=== PATIENT | female | born 1995 | race Caucasian/White ===

== ENCOUNTER → 2018-12-21 | Outpatient (CLI) | payer OTHER ==
--- NOTE | 2018-12-21 15:27 | RADIOLOGY REPORT (SQ) ---
EXAM DESCRIPTION: CT ABD/PELVIS COMBO COMPLETED DATE/TIME: 12/21/2018 1:54 pm REASON FOR STUDY: RENAL MASS COMPARISON: None. TECHNIQUE: CT scan of the abdomen and pelvis performed with and without intravenous contrast, and wi thout oral contrast. Contrasted imaging performed helical scanning technique and dynamic intravenous contrast injection. Images reviewed with lung, soft tissue, and bone windows. Reconstructed coronal a nd sagittal MPR images reviewed. Delayed images for evaluation of the urinary system also acquired. A ll images stored on PACS. All CT scanners at this facility use dose modulation, iterative reconstruction, and/or weight based d osing when appropriate to reduce radiation dose to as low as reasonably achievable (ALARA). [facility]: Dose Right [facility]: CareDose [facility]: Dose Right [facility]: Teradose 4D [facility]: BRAINREPUBLIC CONTRAST TYPE AND DOSE: contrast/concentration: Isovue 350.00 mg/ml; Total Contrast Delivered: 51.0 ml; Total Saline Delivered: 55.0 ml RENAL FUNCTION: None required. The patient is less than 50 years old. RADIATION DOSE: CT Rad equipment meets quality standard of care and radiation dose reduction techniq ues were employed. CTDIvol: 5.0 - 19.7 mGy. DLP: 1236 mGy-cm. . LIMITATIONS: None. FINDINGS: NON-CONTRASTED IMAGING: No significant renal or bladder calcifications. No other significa nt organ calcifications. POST-CONTRASTED IMAGING: LOWER CHEST: No significant findings. No nodules or infiltrates. LIVER: Normal size. No masses. No dilated ducts. SPLEEN: Normal size. No focal lesions. PANCREAS: No masses. No significant calcifications. No adjacent inflammation or peripancreatic fluid collections. Pancreatic duct not dilated. GALLBLADDER: No identified stones by CT criteria. No inflammatory changes to suggest cholecystitis. ADRENAL GLANDS: No significant masses or asymmetry. RIGHT KIDNEY AND URETER: No solid masses. No significant calcifications. No hydronephrosis or hyd roureter. LEFT KIDNEY AND URETER: No solid masses. No significant calcifications. No hydronephrosis or hydr oureter. AORTA AND VESSELS: No aneurysm. No dissection. Renal arteries, SMA, celiac without stenosis. 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 RETROPERITONEUM: No retroperitoneal adenopathy, hemorrhage or masses. BOWEL AND PERITONEAL CAVITY: No masses or inflammatory changes. No free fluid or peritoneal masses. APPENDIX: Normal. PELVIS: No mass. Tampon in the vagina. No free fluid. Normal bladder. ABDOMINAL WALL: No masses. No hernias. BONES: No significant or acute findings. OTHER: No other significant finding. IMPRESSION: No evidence of renal mass. No significant CT abnormality of the abdomen or pelvis. TECHNICAL DOCUMENTATION: JOB ID: [id number] Quality ID # [id number]: Final reports with documentation of one or more dose reduction techniques (e.g., Au tomated exposure control, adjustment of the mA and/or kV according to patient size, use of iterative reconstruction technique) 2010 [employer]- All Rights Reserved Reading location - IP/workstation name: [email or web address]
== END ==
LOC: RAD 13:11
PROVIDERS: ATTEND Family Medicine
DX: N28.9 Disorder of kidney and ureter, unspecified (principal); R10.11 Right upper quadrant pain
CPT/HCPCS: 74178; 82565

== ENCOUNTER → 2018-12-29 | Outpatient (CLI) | payer OTHER ==
--- NOTE | 2018-12-29 12:57 | RADIOLOGY REPORT (SQ) ---
EXAM DESCRIPTION: NM HIDA SCAN WITH CCK COMPLETED DATE/TIME: 12/29/2018 10:21 am REASON FOR STUDY: RUQ PAIN COMPARISON: None. RADIONUCLIDE AND DOSE: DOSAGE RADIONUCLIDE: 5.05 millicuries Tc99m Mebrofenin. DOSAGE CCK: 1.5 micrograms. DOSAGE MORPHINE: Not required. The route of agent administration: Intravenous TECHNIQUE: Serial imaging right upper quadrant up to 60 minutes following injection of radionuclide. CCK injected after gallbladder visualized. LIMITATIONS: None. FINDINGS: LIVER: Normal visualization without areas of photopenia. INTRA AND EXTRAHEPATIC BILE DUCTS: Normal accumulation of activity. GALLBLADDER: Normal visualization. Calculated Ejection Fraction of 28%. Below the normal value of 35 % or greater. PHYSICAL RESPONSE: Patients presenting complaint was reproduced. OTHER: No other significant finding. IMPRESSION: LOW GALLBLADDER EJECTION FRACTION. EVIDENCE FOR BILIARY DYSKINESIS. NO CYSTIC OR COMMO N DUCT OBSTRUCTION. TECHNICAL DOCUMENTATION: JOB ID: [id number] [employer]- All Rights Reserved Reading location - IP/workstation name: [email or web address]
== END ==
LOC: RAD 08:14
PROVIDERS: ATTEND Family Medicine
DX: K82.8 Other specified diseases of gallbladder (principal); R10.11 Right upper quadrant pain
CPT/HCPCS: 78227; J2805; A9537; Q9969

== ENCOUNTER 2019-01-13 13:59 | Emergency (ER) | payer OTHER ==
--- NOTE | 2019-01-13 14:57 | ER Document Report ---
ED Psych Disorder / Suicide - General Stated Complaint: SUICIDAL IDEATION Time Seen by Provider: 01/13/19 14:22 Primary Care Provider: MEKA STALLINGS MD [Primary Care Provider] - Follow up as needed Mode of Arrival: Ambulatory Information source: Patient Notes: Patient is a 23-year-old female presenting to the emergency department from the [facility] after an attempted hanging. Staff at the long-term report that patient was found hanging in her cell, they state that she had a bedsheet tied to the top bunk bed. They are unsure how long she was hanging but states that the last time she was checked on was approximately 15 minutes earlier. EMS reported that when the patient was found and removed from the sheet she had decreased responsiveness and O2 sat in the 70s. She according to EMS immediately came around had color return and resumed and O2 saturation in the high 90s without intervention. Patient reports she was trying to kill herself. Patient does have a hoarse voice. Patient does have ligature shipman to the left lateral neck. TRAVEL OUTSIDE OF THE [place] IN LAST 30 DAYS: No Past Medical History - General Information source: Patient - Social History Smoking Status: Never Smoker Family History: Reviewed & Not Pertinent - Medical History Medical History: Negative Infectious Medical History: Reports: Hx Hepatitis - C Surgical Hx: Negative - Immunizations Immunizations up to date: Yes Review of Systems - Review of Systems Constitutional: No symptoms reported EENT: No symptoms reported Cardiovascular: No symptoms reported Respiratory: No symptoms reported Gastrointestinal: No symptoms reported Genitourinary: No symptoms reported Female Genitourinary: No symptoms reported Musculoskeletal: No symptoms reported Skin: See HPI Hematologic/Lymphatic: No symptoms reported Neurological/Psychological: Suicidal ideation Physical Exam - Vital signs Vitals: Temp Pulse Resp BP Pulse Ox 98.3 F 70 15 99/60 L 99 01/13/19 14:38 01/13/19 14:38 01/13/19 14:38 01/13/19 14:38 01/13/19 14:38 - Notes Notes: PHYSICAL EXAMINATION: GENERAL: Well-nourished. HEAD: Atraumatic, normocephalic. EYES: Pupils equal round and reactive to light, extraocular movements intact, conjunctiva are normal. ENT: Nares patent, oropharynx clear without exudates. Moist mucous membranes. NECK: Normal range of motion, supple without lymphadenopathy, Erythema noted to left lateral neck. LUNGS: Breath sounds clear to auscultation bilaterally and equal. No wheezes rales or rhonchi. HEART: Regular rate and rhythm without murmurs ABDOMEN: Soft, nontender, nondistended abdomen. No guarding, no rebound. No masses appreciated. Female : deferred Musculoskeletal: Normal range of motion, no pitting or edema. No cyanosis. NEUROLOGICAL: Cranial nerves grossly intact. Normal speech, normal gait. Normal sensory, motor exams PSYCH: Normal mood, normal affect. SKIN: Erythema noted to left lateral neck. Course - Re-evaluation Re-evalutation: Laboratory 01/13/19 01/13/19 01/13/19 14:41 14:41 15:46 WBC Cancelled RBC Cancelled Hgb Cancelled Hct Cancelled MCV Cancelled MCH Cancelled MCHC Cancelled RDW Cancelled Plt Count Cancelled Lymph % (Auto) Cancelled Drew % (Auto) Cancelled Eos % (Auto) Cancelled Baso % (Auto) Cancelled Absolute Neuts (auto) Cancelled Absolute Lymphs (auto) Cancelled Absolute Monos (auto) Cancelled Absolute Eos (auto) Cancelled Absolute Basos (auto) Cancelled Seg Neutrophils % Cancelled Platelet Estimate Cancelled Sodium Potassium Chloride Carbon Dioxide Anion Gap BUN Creatinine Est GFR ( Amer) Est GFR (MDRD) Non-Af Glucose Calcium Total Bilirubin Direct Bilirubin Neonat Total Bilirubin Neonat Direct Bilirubin Neonat Indirect Bili AST ALT Alkaline Phosphatase Total Protein Albumin Urine Color YELLOW Urine Appearance CLOUDY Urine pH 6.0 Ur Specific Andrew 1.012 Urine Protein NEGATIVE Urine Glucose (UA) NEGATIVE Urine Ketones NEGATIVE Urine Blood NEGATIVE Urine Nitrite NEGATIVE Urine Bilirubin NEGATIVE Urine Urobilinogen NEGATIVE Ur Leukocyte Esterase SMALL H Urine WBC (Auto) 5 Urine RBC (Auto) 6 Squamous Epi Cells Auto 21 Urine Mucus (Auto) RARE Urine Ascorbic Acid 20 H Salicylates Urine Opiates Screen NEGATIVE Urine Methadone Screen NEGATIVE Acetaminophen Ur Barbiturates Screen NEGATIVE Ur Phencyclidine Scrn NEGATIVE Ur Amphetamines Screen NEGATIVE U Benzodiazepines Scrn NEGATIVE Urine Cocaine Screen NEGATIVE U Marijuana (THC) Screen NEGATIVE Serum Alcohol Slides for Path Review Cancelled 01/13/19 01/13/19 15:46 16:42 WBC 9.1 RBC 4.10 Hgb 13.0 Hct 38.2 MCV 93 MCH 31.9 MCHC 34.2 RDW 13.6 Plt Count 197 Lymph % (Auto) 22.2 Drew % (Auto) 7.6 Eos % (Auto) 0.2 Baso % (Auto) 1.1 Absolute Neuts (auto) 6.3 Absolute Lymphs (auto) 2.0 Absolute Monos (auto) 0.7 Absolute Eos (auto) 0.0 Absolute Basos (auto) 0.1 Seg Neutrophils % 68.9 Platelet Estimate Sodium 139.2 Potassium 4.9 Chloride 102 Carbon Dioxide 29 Anion Gap 8 BUN 16 Creatinine 0.62 Est GFR ( Amer) > 60 Est GFR (MDRD) Non-Af > 60 Glucose 85 Calcium 9.6 Total Bilirubin 0.9 Direct Bilirubin 0.1 Neonat Total Bilirubin Not Reportable Neonat Direct Bilirubin Not Reportable Neonat Indirect Bili Not Reportable AST 62 H ALT 106 Alkaline Phosphatase 59 Total Protein 7.9 Albumin 4.6 Urine Color Urine Appearance Urine pH Ur Specific Andrew Urine Protein Urine Glucose (UA) Urine Ketones Urine Blood Urine Nitrite Urine Bilirubin Urine Urobilinogen Ur Leukocyte Esterase Urine WBC (Auto) Urine RBC (Auto) Squamous Epi Cells Auto Urine Mucus (Auto) Urine Ascorbic Acid Salicylates < 1.0 L Urine Opiates Screen Urine Methadone Screen Acetaminophen < 10 L Ur Barbiturates Screen Ur Phencyclidine Scrn Ur Amphetamines Screen U Benzodiazepines Scrn Urine Cocaine Screen U Marijuana (THC) Screen Serum Alcohol < 10 Slides for Path Review Soft Tissue Neck CT 01/13/19 14:36 IMPRESSION: NO SIGNIFICANT FINDING IN THE SOFT TISSUES OF THE NECK. Labs as outlined above are unremarkable. CT soft tissue neck with no significant findings. Patient is alert, speaking in complete sentences. Able to swallow without difficulty. Patient will be discharged back to the [facility], they will have her on suicide watch. - Vital Signs Vital signs: Temp Pulse Resp BP Pulse Ox 97.5 F 66 16 95/55 L 99 01/13/19 17:36 01/13/19 17:36 01/13/19 17:36 01/13/19 17:36 01/13/19 17:36 - Laboratory Result Diagrams: 01/13/19 16:42 01/13/19 15:46 Laboratory results interpreted by me: 01/13/19 01/13/19 14:41 15:46 AST 62 H Ur Leukocyte Esterase SMALL H Urine Ascorbic Acid 20 H Salicylates < 1.0 L Acetaminophen < 10 L Discharge - Discharge Clinical Impression: Suicide attempt by hanging Qualifiers: Encounter type: initial encounter Qualified Code(s): T71.162A - Asphyxiation due to hanging, intentional self-harm, initial encounter Condition: Stable Disposition: HOME, SELF-CARE Additional Instructions: You were seen in the emergency department after an attempted hanging. The CAT scan of your neck was unremarkable and there was no permanent damage done. All of your blood work and urine were also within normal limits. Patient needs to be placed on suicide watch in the long-term, if this is unable to be accommodated patient needs to be transferred to a larger facility such as [facility] where they have medical staff and psychiatric coverage. Please return to the emergency department with any new or worsening symptoms. Referrals: MEKA STALLINGS MD [Primary Care Provider] - Follow up as needed
--- NOTE | 2019-01-13 15:06 | EKG REPORT ---
SEVERITY:- NORMAL ECG - SINUS RHYTHM : Confirmed by: Dat Mncamara MD 13-Jan-2019 15:05:47
[2019-01-13 15:10] LABS: APPEARANCE,URINE CLOUDY; BILIRUBIN,URINE NEGATIVE (NEGATIVE); COLOR,URINE YELLOW; GLUCOSE, URINE NEGATIVE (NEGATIVE); KETONES,URINE NEGATIVE (NEGATIVE); LEUKOCYTE ESTERASE,URINE SMALL (NEGATIVE); NITRITE,URINE NEGATIVE (NEGATIVE); PROTEIN,URINE NEGATIVE (NEGATIVE); URINE SPECIFIC GRAVITY 1.012; UROBILINOGEN,URINE NEGATIVE mg/dL (<2.0)
[2019-01-13 15:17] LABS: URINE AMPHETAMINES SCREEN NEGATIVE; URINE BARBITURATES SCREEN NEGATIVE; URINE BENZODIAZEPINES SCREEN NEGATIVE; URINE COCAINE SCREEN NEGATIVE; URINE MARIJUANA (THC) SCREEN NEGATIVE; URINE METHADONE SCREEN NEGATIVE; URINE PHENCYCLIDINE SCREEN NEGATIVE
[2019-01-13 16:31] LABS: ALBUMIN 4.6 g/dL (3.5-5.0); ALKALINE PHOSPHATASE 59 U/L (38-126); ANION GAP 8 (5-19); ASPARTATE AMINO TRANSFERASE 62 U/L (14-36); BILIRUBIN,DIRECT 0.1 mg/dL (0.0-0.4); BILIRUBIN,TOTAL 0.9 mg/dL (0.2-1.3); BLOOD UREA NITROGEN 16 mg/dL (7-20); CALCIUM 9.6 mg/dL (8.4-10.2); CARBON DIOXIDE 29 mmol/L (22-30); CHLORIDE 102 mmol/L (98-107); GLUCOSE 85 mg/dL (75-110); POTASSIUM 4.9 mmol/L (3.6-5.0); TOTAL PROTEIN 7.9 g/dL (6.3-8.2)
[2019-01-13 16:35] LABS: ACETAMINOPHEN < 10 ug/mL (10-30); ALCOHOL < 10 mg/dL (NONE DETECTED); SALICYLATE < 1.0 mg/dL (2.0-20.0)
--- NOTE | 2019-01-13 16:51 | RADIOLOGY REPORT (SQ) ---
EXAM DESCRIPTION: CT SOFT TISSUE NECK WITH COMPLETED DATE/TIME: 01/13/2019 4:35 pm REASON FOR STUDY: eval for vascular injury, hanging COMPARISON: None. TECHNIQUE: Post IV contrasted scanning from skull base through lung apices with review of bone, soft tissue and lung windows. Reconstructed coronal and sagittal MPR images reviewed. All images stored on PACS. All CT scanners at this facility use dose modulation, iterative reconstruction, and/or weight based d osing when appropriate to reduce radiation dose to as low as reasonably achievable (ALARA). [facility]: Dose Right [facility]: CareDose [facility]: Dose Right [facility]: Teradose 4D [facility]: Campus Quad CONTRAST TYPE AND DOSE: 75 mL Omnipaque 350- low osmolar. RENAL FUNCTION: None required. The patient is less than 50 years old. RADIATION DOSE: CT Rad equipment meets quality standard of care and radiation dose reduction techniq ues were employed. CTDIvol: 10.5 mGy. DLP: 305 mGy-cm. . LIMITATIONS: None. FINDINGS: SKULL BASE: Intact. MAJOR SALIVARY GLANDS: No solid or cystic masses. No inflammatory changes. LYMPHADENOPATHY: No adenopathy. MUCOSAL MASSES OR ASYMMETRY: No mucosal masses or asymmetry. LARYNX/CORDS: No abnormal findings. VASCULAR STRUCTURES: The major vessels are patent. LUNG APICES: Clear. BONES: Intact. THYROID: Normal size. No masses. PARANASAL SINUSES: Clear. OTHER: No other significant finding. IMPRESSION: NO SIGNIFICANT FINDING IN THE SOFT TISSUES OF THE NECK. TECHNICAL DOCUMENTATION: JOB ID: [id number] Quality ID # [id number]: Final reports with documentation of one or more dose reduction techniques (e.g., Au tomated exposure control, adjustment of the mA and/or kV according to patient size, use of iterative reconstruction technique) 2010 [employer]- All Rights Reserved Reading location - IP/workstation name: [email or web address]
[2019-01-13 16:53] LABS: ABSOLUTE BASOPHILS # (AUTO) 0.1 10^3/uL (0.0-0.2); ABSOLUTE MONOCYTES (AUTO) 0.7 10^3/uL (0.1-1.4); ABSOLUTE NEUT (AUTO) 6.3 10^3/uL (1.7-8.2); BASOPHILS % (AUTO) 1.1 % (0-2); EOSINOPHILS % (AUTO) 0.2 % (0-6); HEMATOCRIT 38.2 % (36.0-47.0); LYMPHOCYTES % (AUTO) 22.2 % (13-45); MEAN CORPUSCULAR HEMOGLOBIN 31.9 pg (27.0-33.4); MEAN CORPUSCULAR HGB CONC 34.2 g/dL (32.0-36.0); MEAN CORPUSCULAR VOLUME 93 fl (80-97); MONOCYTES % (AUTO) 7.6 % (3-13); PLATELET COUNT 197 10^3/uL (150-450); RED CELL DISTRIBUTION WIDTH 13.6 % (11.5-14.0); SEGMENTED NEUTROPHILS % (AUTO) 68.9 % (42-78); TOTAL CELLS COUNTED % (AUTO) 100 %; WHITE BLOOD COUNT 9.1 10^3/uL (4.0-10.5)
[2019-01-13 17:40] VITALS: BP 95/55
== END 2019-01-13 17:46 | disposition home or self-care (01) ==
LOC: ER 13:59
DX: T71.162A Asphyxiation due to hanging, intentional self-harm, initial encounter (principal); L53.9 Erythematous condition, unspecified; R49.0 Dysphonia; Y92.143 Cell of prison as the place of occurrence of the external cause
CPT/HCPCS: 36415; 70491; 80053; 80307; 81001; 85025; 93005; 93010; 99285

== ENCOUNTER 2019-02-09 12:05 | Day surgery (SDC) | payer OTHER ==
[~2019-02-09 12:05] MED LIST: ACETAMINOPHEN 325 MG TABLET PO PRN; CEFAZOLIN SODIUM 1 GM in DEXTROSE 5%-WATER 50 ML IV PRN; METRONIDAZOLE 500 MG/NS RTU 500 MG/100 ML RTUPB IV PRN
[2019-02-09] MEDS ORDERED: METRONIDAZOLE 500 MG/NS RTU 0 MG/0 ML RTUPB IV ONE (12:57)
[2019-02-09 13:17] VITALS: BP 102/68
[2019-02-09 13:27] LABS: HEMATOCRIT 37.8 % (36.0-47.0); MEAN CORPUSCULAR HGB CONC 34.5 g/dL (32.0-36.0); MEAN CORPUSCULAR VOLUME 93 fl (80-97); PLATELET COUNT 164 10^3/uL (150-450); RED BLOOD COUNT 4.07 10^6/uL (3.72-5.28); RED CELL DISTRIBUTION WIDTH 12.7 % (11.5-14.0); WHITE BLOOD COUNT 5.8 10^3/uL (4.0-10.5)
[2019-02-09] MEDS ORDERED: ALBUTEROL SULFATE 0.083% NEB 2.5 MG/3 ML AMPUL NEB ONE (13:45)
[2019-02-09 13:46] LABS: ALKALINE PHOSPHATASE 70 U/L (38-126); AMYLASE 49 U/L (30-110); ANION GAP 6 (5-19); ASPARTATE AMINO TRANSFERASE 23 U/L (14-36); BILIRUBIN,DIRECT 0.1 mg/dL (0.0-0.4); BILIRUBIN,TOTAL 1.1 mg/dL (0.2-1.3); BLOOD UREA NITROGEN 12 mg/dL (7-20); CALCIUM 9.1 mg/dL (8.4-10.2); CARBON DIOXIDE 27 mmol/L (22-30); CHLORIDE 105 mmol/L (98-107); GLUCOSE 83 mg/dL (75-110); POTASSIUM 4.2 mmol/L (3.6-5.0)
[2019-02-09] MEDS ORDERED: MIDAZOLAM 2 MG/2 ML INJ ONE ×2 (13:53→14:12)
[2019-02-09] MEDS ORDERED: CEFAZOLIN INJ 1 GM VIAL ONE (13:58)
[2019-02-09] MEDS ORDERED: METRONIDAZOLE 500 MG/NS RTU 500 MG/100 ML RTUPB IV ONE (14:02)
[2019-02-09] MEDS ORDERED: DEXAMETHASONE SOD PHOSPHATE INJ 4 MG/1 ML VIAL ONE (14:12)
[2019-02-09] MEDS ORDERED: HYDROMORPHONE HCL INJ/PF 2 MG/ML AMPULE ONE (14:12)
[2019-02-09] MEDS ORDERED: FENTANYL CITRATE INJ/PF 100 MCG/2 ML AMPUL ONE (14:12)
[2019-02-09] MEDS ORDERED: ONDANSETRON HCL INJ/PF 4 MG/2 ML SDV ONE (14:12)
[2019-02-09] MEDS ORDERED: PROPOFOL INJ 200 MG/20 ML VIAL IV ONE (14:12)
[2019-02-09] MEDS ORDERED: RINGERS SOLUTION,LACTATED 1,000 ML IV ONE (15:00)
== END 2019-02-09 14:53 ==
LOC: OROUT 12:05
PROVIDERS: ATTEND Surgery
DX: K82.9 Disease of gallbladder, unspecified (principal); Z53.9 Procedure and treatment not carried out, unspecified reason
CPT/HCPCS: 86900; 86901; 36415; 86850; 82150; 83690; 85027; 81025; 80076; 80048; J2250; J3490; J0690; J1100; J1170; J2405; J2704; J3010; J7060

== ENCOUNTER 2019-03-14 07:41 | Day surgery (SDC) | payer OTHER ==
[2019-03-14] MEDS ORDERED: METRONIDAZOLE 500 MG/NS RTU 500 MG/100 ML RTUPB IV ONE (07:59)
[2019-03-14] MEDS ORDERED: CEFAZOLIN 1 GM/D5W RTU 1 GM/50 ML RTUPB IV ONE (07:59)
[2019-03-14] MEDS ORDERED: ALBUTEROL SULFATE 0.083% NEB 2.5 MG/3 ML AMPUL NEB ONE (08:25)
[2019-03-14] MEDS ORDERED: ONDANSETRON HCL INJ/PF 4 MG/2 ML SDV ONE ×2 (08:58→09:00)
[2019-03-14] MEDS ORDERED: NEOSTIGMINE METHYLSULFATE 10 MG/10 ML VIAL ONE ×2 (08:58→09:00)
[2019-03-14] MEDS ORDERED: DEXAMETHASONE SOD PHOSPHATE INJ 4 MG/1 ML VIAL ONE ×2 (08:58→09:00)
[2019-03-14] MEDS ORDERED: GLYCOPYRROLATE 1 MG/5 ML VIAL ONE ×2 (08:58→09:00)
[2019-03-14] MEDS ORDERED: METOCLOPRAMIDE HCL INJ/PF 10 MG/2 ML SDV ONE ×2 (08:58→09:00)
[2019-03-14] MEDS ORDERED: KETOROLAC TROMETHAMINE 60 MG/2 ML SDV ONE ×2 (08:58→09:00)
[2019-03-14] MEDS ORDERED: SUCCINYLCHOLINE CHLORIDE INJ 200 MG/10 ML VIAL ONE (08:58)
[2019-03-14] MEDS ORDERED: ROCURONIUM BROMIDE INJ 50 MG/5 ML VIAL IV ONE (08:58)
[2019-03-14] MEDS ORDERED: LIDOCAINE 2% INJ-PF (20 MG/ML) 2 ML AMPUL ONE ×2 (08:58→09:00)
[2019-03-14] MEDS ORDERED: BUPIVACAINE INJ/PF LIPOSOME/PF 266 MG/20 ML SDV ONE (09:04)
[2019-03-14] MEDS ORDERED: MIDAZOLAM 2 MG/2 ML INJ ONE (09:06)
[2019-03-14] MEDS ORDERED: PROPOFOL INJ 200 MG/20 ML VIAL IV ONE (09:06)
[2019-03-14] MEDS ORDERED: HYDROMORPHONE HCL INJ/PF 2 MG/ML AMPULE ONE (09:06)
[2019-03-14] MEDS ORDERED: PROMETHAZINE HCL INJ 25 MG/1 ML VIAL IV PRN ×2 (10:05)
[2019-03-14] MEDS ORDERED: DIPHENHYDRAMINE HCL 50 MG/ML VIAL IV PRN (10:05)
[2019-03-14] MEDS ORDERED: FENTANYL CITRATE INJ/PF 100 MCG/2 ML AMPUL IV PRN ×3 (10:05)
[2019-03-14] MEDS ORDERED: MEPERIDINE HCL/PF INJ 25 MG/1 ML DISP.SYRIN IV PRN (10:05)
[2019-03-14] MEDS ORDERED: ONDANSETRON HCL INJ/PF 4 MG/2 ML SDV IV PRN (10:05)
--- NOTE | 2019-03-14 10:22 | Operative Report ---
Nonrecallable Operative Report DATE OF SURGERY: 03/14/19 PREOPERATIVE DIAGNOSIS: Symptomatic cholelithiasis POSTOPERATIVE DIAGNOSIS: Symptomatic cholelithiasis OPERATION: Laparoscopic cholecystectomy SURGEON: ODALYS BRIONES ANESTHESIA: GA TISSUE REMOVED OR ALTERED: Gallbladder COMPLICATIONS: None ESTIMATED BLOOD LOSS: 10 cc INTRAOPERATIVE FINDINGS: See note PROCEDURE: After obtaining informed consent, the patient was taken to the operating room. General Anesthesia was induced; the arms were extended, and the abdomen was exposed, and prepped and draped in a sterile fashion. Instrumentation was set up for laparoscopic cholecystectomy. Surgical plan and surgical timeout were conducted. A vertical incision was made above the umbilicus, and a verres needle was inserted uneventfully into the peritoneal cavity. Pneumoperitoneum was established. The verres needle was removed and a 10 mm trocar was inserted and a 10 mm laparoscope was inserted. Visualization of the peritoneal cavity confirmed safe uneventful entry. Under direct visualization 3 additional 5 mm ports were esta blished, one in the subxiphoid position and second in the subcostal position. Visualization of the hepatobiliary anatomy revealed no anatomic variations. A grasper was placed on the fundus of the gallbladder and the gallbladder is elevated over the right surface of the liver; a second grasper was used to grasp the infundibulum of the gallbladder. The neck of the gallbladder and junction with the cystic duct was dissected out. The Cystic artery was in its usual location medial and cephalad to the cystic duct. The cystic artery was surrounded with a right angle clamp, clipped twice proximally and divided with laparoscopic scissors. We now opened the triangle of Calot by dividing the peritoneal reflection on both the medial and lateral sides of the cystic duct infundibular junction. The critical view was obtained. We now milked the cystic duct of any possible stones, clipped the cystic duct approximately 2 times once distally and divided with scissors. The gallbladder was now removed from the undersurface of the liver using hook cautery dissection. Graspers were repositioned and the gallbladder was removed uneventfully from the abdominal cavity through the super umbilical port site incision. The specimen was examined, then passed off to pathology for permanent analysis. We returned to the peritoneal cavity check for bleeding, and evidence of bile leak, and there was none. We Confirmed satisfactory placement of clips on cystic duct and cystic artery were secured . At this point we felt the operation was complete. The subcutaneous tissue was then anesthetized with quarter percent Marcaine Sponge and needle counts are correct. All ports removed under direct visualization pneumoperitoneum evacuated, and 5 mm port wounds closed with 3-0 Vicryl suture, benzoin and Steri-Strips. The patient was extubated, and taken to the recovery room in stable condition.
[2019-03-14] MEDS ORDERED: OXYCODONE-ACETAMINOPHEN 5-325 MG TABLET PO PRN (10:25)
--- NOTE | 2019-03-14 10:25 | Discharge Summary ---
Discharge Summary (SDC) - Discharge Final Diagnosis: Symptomatic cholelithiasis Date of Surgery: 03/14/19 Discharge Date: 03/14/19 Condition: Good Referrals: MEKA STALLINGS MD [Primary Care Provider] - Discharge Diet: As Tolerated Discharge Activity: Activity As Tolerated, No Lifting Over 10 Pounds Report the Following to Your Physician Immediately: Shortness of Breath, Fever over 101 Degrees - patient needs a follow-up appointment in 10 to 14 days
[2019-03-14] MEDS ORDERED: FENTANYL CITRATE INJ/PF 100 MCG/2 ML AMPUL ONE (10:34)
[2019-03-14] MEDS ORDERED: OXYCODONE-ACETAMINOPHEN 5-325 MG TABLET ONE (11:14)
[2019-03-14 14:19] VITALS: BP 96/60
== END 2019-03-14 12:40 ==
LOC: OROUT 07:41
PROVIDERS: ATTEND Surgery
DX: K81.1 Chronic cholecystitis (principal); F17.210 Nicotine dependence, cigarettes, uncomplicated; J45.20 Mild intermittent asthma, uncomplicated; G40.909 Epilepsy, unspecified, not intractable, without status epilepticus
CPT/HCPCS: 86900; 86901; 36415; 86850; 81025; 88304 ×2; 47562; J2250; J0690; J3490 ×4; J1100; J1885; J3010; J2765; J2710; J1170; J0330; J2405; J2704; C9290

== ENCOUNTER 2019-04-23 13:40 | Emergency (ER) | payer OTHER ==
[2019-04-23 14:09] LABS: ABSOLUTE EOSINOPHILS # (AUTO) 0.1 10^3/uL (0.0-0.6); ABSOLUTE LYMPHOCYTES (AUTO) 1.3 10^3/uL (0.5-4.7); ABSOLUTE MONOCYTES (AUTO) 0.4 10^3/uL (0.1-1.4); ABSOLUTE NEUT (AUTO) 3.1 10^3/uL (1.7-8.2); BASOPHILS % (AUTO) 0.7 % (0-2); EOSINOPHILS % (AUTO) 2.1 % (0-6); HEMATOCRIT 36.3 % (36.0-47.0); HEMOGLOBIN 12.6 g/dL (12.0-15.5); LYMPHOCYTES % (AUTO) 25.6 % (13-45); MEAN CORPUSCULAR HEMOGLOBIN 32.3 pg (27.0-33.4); MEAN CORPUSCULAR HGB CONC 34.8 g/dL (32.0-36.0); MEAN CORPUSCULAR VOLUME 93 fl (80-97); PLATELET COUNT 160 10^3/uL (150-450); RED BLOOD COUNT 3.91 10^6/uL (3.72-5.28); RED CELL DISTRIBUTION WIDTH 12.9 % (11.5-14.0); SEGMENTED NEUTROPHILS % (AUTO) 62.6 % (42-78); TOTAL CELLS COUNTED % (AUTO) 100 %; WHITE BLOOD COUNT 4.9 10^3/uL (4.0-10.5)
[2019-04-23 14:16] LABS: ALBUMIN 3.8 g/dL (3.5-5.0); ALKALINE PHOSPHATASE 57 U/L (38-126); ANION GAP 6 (5-19); ASPARTATE AMINO TRANSFERASE 19 U/L (14-36); BILIRUBIN,TOTAL 0.7 mg/dL (0.2-1.3); BLOOD UREA NITROGEN 15 mg/dL (7-20); CALCIUM 8.7 mg/dL (8.4-10.2); CARBON DIOXIDE 26 mmol/L (22-30); CHLORIDE 107 mmol/L (98-107); GLUCOSE 107 mg/dL (75-110); POTASSIUM 4.3 mmol/L (3.6-5.0); TOTAL PROTEIN 6.1 g/dL (6.3-8.2)
[2019-04-23 14:21] LABS: ALCOHOL < 10 mg/dL (NONE DETECTED)
[2019-04-23] MEDS ORDERED: ACETAMINOPHEN 325 MG TABLET PO ONE ×2 (14:22→16:58)
[2019-04-23] MEDS ORDERED: LAMOTRIGINE 100 MG TABLET PO ONE ×2 (14:28→16:58)
[2019-04-23] MEDS ORDERED: LORAZEPAM INJ 2 MG/1 ML VIAL IV ONE (14:42)
[2019-04-23] MEDS ORDERED: LEVETIRACETAM 1000 MG/NACL-ISO 1,000 MG/100 ML RTUPB IV ONE (14:48)
--- NOTE | 2019-04-23 14:49 | ER Document Report ---
ED Seizure - General Chief Complaint: Seizure Stated Complaint: POSSIBLE SEIZURES Time Seen by Provider: 04/23/19 14:04 Primary Care Provider: MEKA STALLINGS MD [Primary Care Provider] - Follow up as needed Mode of Arrival: Ambulatory Information source: Patient Notes: Patient is a 24-year-old female presenting to the emergency department from the [facility] after having a seizure. Patient is a known epileptic. Patient takes Lamictal 200 mg daily, she has missed the last few days of her medication. Patient reports that she has overslept during med past which is why she has not had her medication. Per EMS the patient had 2 seizures at the skilled nursing which triggered the 911 call, she had one seizure in the back of the ambulance. At the time of arrival she is awake alert conscious and answering all questions appropriately. She did bite her tongue. - Related Data Allergies/Adverse Reactions: No Known Allergies Allergy (Unverified 02/08/19 13:52) Past Medical History - General Information source: Patient - Social History Smoking Status: Current Every Day Smoker Frequency of alcohol use: Occasional Drug Abuse: Marijuana Family History: Reviewed & Not Pertinent Patient has suicidal ideation: No Patient has homicidal ideation: No - Past Medical History Cardiac Medical History: Reports: Hx Hypertension Denies: Hx Coronary Artery Disease, Hx Heart Attack Pulmonary Medical History: Reports: Hx Bronchitis Denies: Hx Asthma, Hx COPD, Hx Pneumonia Neurological Medical History: Reports: Hx Seizures. Denies: Hx Cerebrovascular Accident GI Medical History: Reports: Hx Hepatitis - C Musculoskeletal Medical History: Denies Hx Arthritis Psychiatric Medical History: Reports: Hx Depression Infectious Medical History: Reports: Hx Hepatitis - C - Immunizations Immunizations up to date: Yes Review of Systems - Review of Systems Constitutional: No symptoms reported EENT: See HPI Cardiovascular: No symptoms reported Respiratory: No symptoms reported Gastrointestinal: No symptoms reported Genitourinary: No symptoms reported Female Genitourinary: No symptoms reported Musculoskeletal: No symptoms reported Skin: No symptoms reported Hematologic/Lymphatic: No symptoms reported Neurological/Psychological: See HPI Physical Exam - Vital signs Vitals: Temp Pulse Resp BP Pulse Ox 98.7 F 90 12 96/61 L 94 04/23/19 13:40 04/23/19 13:40 04/23/19 13:40 04/23/19 13:40 04/23/19 13:40 - Notes Notes: PHYSICAL EXAMINATION: GENERAL: Well-appearing, well-nourished and in no acute distress. HEAD: Atraumatic, normocephalic. EYES: Pupils equal round and reactive to light, extraocular movements intact, conjunctiva are normal. ENT: Nares patent, oropharynx clear without exudates. Moist mucous membranes. Small laceration to tongue. No active bleeding noted. NECK: Normal range of motion, supple without lymphadenopathy LUNGS: Breath sounds clear to auscultation bilaterally and equal. No wheezes rales or rhonchi. HEART: Regular rate and rhythm without murmurs ABDOMEN: Soft, nontender, nondistended abdomen. No guarding, no rebound. No masses appreciated. Female : deferred Musculoskeletal: Normal range of motion, no pitting or edema. No cyanosis. NEUROLOGICAL: Cranial nerves grossly intact. Normal speech, normal gait. Normal sensory, motor exams PSYCH: Normal mood, normal affect. SKIN: Warm, Dry, normal turgor, no rashes or lesions noted. Course - Re-evaluation Re-evalutation: Patient alert, oriented, answering all questions at time of arrival. She will be given a loading dose of her antiepileptic medication, she will be monitored for short time with plans to discharge her home after that. 04/23/19 14:48 Pt had witnessed seizure activity apparent IV Ativan was administered. Loading dose of IV Keppra now ordered. Patient has now been monitored in the emergency department for several hours, she has had no additional seizure activity. She is now being given the dose of 200 mg Lamictal. She will be discharged back to the [facility] in stable condition. She was encouraged to be compliant with her medications. - Vital Signs Vital signs: Temp Pulse Resp BP Pulse Ox 98.7 F 90 14 98/62 L 98 04/23/19 13:40 04/23/19 13:40 04/23/19 15:01 04/23/19 15:00 04/23/19 15:01 - Laboratory Result Diagrams: 04/23/19 13:41 04/23/19 13:41 Laboratory results interpreted by me: 04/23/19 13:41 Total Protein 6.1 L Discharge - Discharge Clinical Impression: Seizure Condition: Stable Disposition: HOME, SELF-CARE Additional Instructions: Please take medications as prescribed. Please be sure to take your Lamictal 200 mg every morning as provided by the skilled nursing medical staff. Referrals: MEKA STALLINGS MD [Primary Care Provider] - Follow up as needed
[2019-04-23 15:01] LABS: APPEARANCE,URINE SLIGHTLY-CLOUDY; BILIRUBIN,URINE NEGATIVE (NEGATIVE); COLOR,URINE YELLOW; GLUCOSE, URINE NEGATIVE (NEGATIVE); KETONES,URINE NEGATIVE (NEGATIVE); LEUKOCYTE ESTERASE,URINE NEGATIVE (NEGATIVE); NITRITE,URINE NEGATIVE (NEGATIVE); PROTEIN,URINE NEGATIVE (NEGATIVE); UROBILINOGEN,URINE NEGATIVE mg/dL (<2.0)
[2019-04-23 15:11] LABS: URINE AMPHETAMINES SCREEN NEGATIVE; URINE BARBITURATES SCREEN NEGATIVE; URINE COCAINE SCREEN NEGATIVE; URINE MARIJUANA (THC) SCREEN NEGATIVE; URINE METHADONE SCREEN NEGATIVE; URINE PHENCYCLIDINE SCREEN NEGATIVE
[2019-04-23 15:13] LABS: URINE BENZODIAZEPINES SCREEN UNCONFIRMED POSITIVE
--- NOTE | 2019-04-23 16:19 | EKG REPORT ---
SEVERITY:- ABNORMAL ECG - SINUS RHYTHM LOW VOLTAGE IN FRONTAL LEADS ABNORMAL Q SUGGESTS ANTERIOR INFARCT : Confirmed by: Kera Reyes MD 23-Apr-2019 16:18:10
[2019-04-23] MEDS ORDERED: AMMONIA INHALANTS 10 AMPUL/BOX IH ONE (17:16)
[2019-04-23 17:26] VITALS: BP 107/67
== END 2019-04-23 17:27 | disposition home or self-care (01) ==
LOC: ER 13:40
DX: G40.909 Epilepsy, unspecified, not intractable, without status epilepticus (principal); F17.200 Nicotine dependence, unspecified, uncomplicated; I10 Essential (primary) hypertension
CPT/HCPCS: 93005; 99284; 96375; 96365; 36415; 82962; 80307 ×2; 83735; 84703; 85025; 80053; 80175; 81001; 93010; J3490 ×2; J2060; J1953

== ENCOUNTER 2019-06-17 19:31 | Inpatient (IN) | payer SELFPAY ==
[2019-06-17] MEDS ORDERED: NORMAL SALINE 1000 ML 1,000 ML IV ONE (19:46)
[2019-06-17] MEDS ORDERED: CEFEPIME 1 GM/D5W RTU 1 GM/50 ML RTUPB IV ONE (19:49)
[2019-06-17 20:05] LABS: ABSOLUTE BASOPHILS # (AUTO) 0.1 10^3/uL (0.0-0.2); ABSOLUTE EOSINOPHILS # (AUTO) 0.1 10^3/uL (0.0-0.6); ABSOLUTE LYMPHOCYTES (AUTO) 1.8 10^3/uL (0.5-4.7); ABSOLUTE MONOCYTES (AUTO) 0.4 10^3/uL (0.1-1.4); ABSOLUTE NEUT (AUTO) 16.6 10^3/uL (1.7-8.2); BASOPHILS % (AUTO) 0.4 % (0-2); EOSINOPHILS % (AUTO) 0.5 % (0-6); HEMATOCRIT 38.5 % (36.0-47.0); HEMOGLOBIN 13.1 g/dL (12.0-15.5); LYMPHOCYTES % (AUTO) 9.8 % (13-45); MEAN CORPUSCULAR HEMOGLOBIN 32.5 pg (27.0-33.4); MEAN CORPUSCULAR HGB CONC 34.2 g/dL (32.0-36.0); MEAN CORPUSCULAR VOLUME 95 fl (80-97); MONOCYTES % (AUTO) 1.9 % (3-13); PLATELET COUNT 193 10^3/uL (150-450); RED BLOOD COUNT 4.04 10^6/uL (3.72-5.28); RED CELL DISTRIBUTION WIDTH 12.6 % (11.5-14.0); SEGMENTED NEUTROPHILS % (AUTO) 87.4 % (42-78); TOTAL CELLS COUNTED % (AUTO) 100 %; WHITE BLOOD COUNT 18.9 10^3/uL (4.0-10.5)
[2019-06-17] MEDS ORDERED: PROPOFOL 1,000 MG/100 ML INFUS..BTL IV PRN ×2 (20:10→23:01)
[2019-06-17 20:11] LABS: INTERNATIONAL RATION (INR) 1.07; PROTHROMBIN TIME 13.9 SEC (11.4-15.4)
[2019-06-17 20:12] LABS: PARTIAL THROMBOPLASTIN TIME 24.8 SEC (23.5-35.8)
[2019-06-17 20:29] LABS: ACETAMINOPHEN < 10 ug/mL (10-30); ALBUMIN 3.6 g/dL (3.5-5.0); ALCOHOL < 10 mg/dL (NONE DETECTED); ALKALINE PHOSPHATASE 69 U/L (38-126); ANION GAP 11 (5-19); ASPARTATE AMINO TRANSFERASE 67 U/L (14-36); BILIRUBIN,TOTAL 0.4 mg/dL (0.2-1.3); BLOOD UREA NITROGEN 13 mg/dL (7-20); CARBON DIOXIDE 23 mmol/L (22-30); CHLORIDE 104 mmol/L (98-107); GLUCOSE 313 mg/dL (75-110); POTASSIUM 3.2 mmol/L (3.6-5.0)
--- NOTE | 2019-06-17 20:29 | RADIOLOGY REPORT (SQ) ---
EXAM DESCRIPTION: XR CHEST 1 VIEW COMPLETED DATE/TME: 06/17/2019 19:43 CLINICAL HISTORY: 24 years, Female, intubated COMPARISON: None. NUMBER OF VIEWS: TECHNIQUE: LIMITATIONS: None. FINDINGS: The tip of the endotracheal tube is only 9 mm above the stephany. The tip of the nasogastric tube is in the stomach. There is possible atelectasis or infiltrate at the medial right lung base. No evidence of pleural effusion. The heart is normal in size. IMPRESSION: The tip of the ET tube is only 9 mm above the stephany. The tube should be pulled up approximately 4 cm. Possible atelectasis or infiltrate at the medial right lung base. copyright 2010 [employer]- All Rights Reserved
[2019-06-17 20:52] LABS: APPEARANCE,URINE SLIGHTLY-CLOUDY; BILIRUBIN,URINE NEGATIVE (NEGATIVE); COLOR,URINE YELLOW; GLUCOSE, URINE >=500 mg/dL (NEGATIVE); KETONES,URINE NEGATIVE (NEGATIVE); LEUKOCYTE ESTERASE,URINE NEGATIVE (NEGATIVE); NITRITE,URINE NEGATIVE (NEGATIVE); PROTEIN,URINE 100 mg/dL (NEGATIVE); URINE SPECIFIC GRAVITY 1.016; UROBILINOGEN,URINE NEGATIVE mg/dL (<2.0)
--- NOTE | 2019-06-17 21:00 | RADIOLOGY REPORT (SQ) ---
EXAM DESCRIPTION: CT HEAD WITHOUT IV CONTRAST COMPLETED DATE/TME: 06/17/2019 19:47 CLINICAL HISTORY: 24 years, Female, OVERDOSE/RESUCITATED/INTUBATED COMPARISON: None. TECHNIQUE: Noncontrast CT head was acquired. Coronal and sagittal reformations were created. Images stored on PACS. All CT scanners at this facility use dose modulation, iterative reconstruction, and/or weight based dosing when appropriate to reduce radiation dose to as low as reasonably achievable (ALARA). [facility]: Dose Right [facility]: CareDose [facility]: Dose Right [facility]: Teradose 4D [facility]: [employer] LIMITATIONS: None. FINDINGS: Brain parenchyma is normal in attenuation. No acute intracranial hemorrhage, mass effect, or extra-axial fluid is seen. Ventricles, sulcal spaces, and basilar cisterns are normal in size and configuration. Globes and orbits show no acute abnormality. Mild opacity is noted about the bilateral sphenoid cellules. Remaining paranasal sinuses and mastoid air cells are clear. No depressed skull fractures. IMPRESSION: No acute intracranial abnormality. TECHNICAL DOCUMENTATION: Quality ID # [id number]: Final reports with documentation of one or more dose reduction techniques (e.g., Automated exposure control, adjustment of the mA and/or kV according to patient size, use of iterative reconstruction technique) copyright 2011 [employer]- All Rights Reserved
[2019-06-17 21:02] LABS: URINE BARBITURATES SCREEN NEGATIVE; URINE COCAINE SCREEN NEGATIVE; URINE MARIJUANA (THC) SCREEN NEGATIVE; URINE METHADONE SCREEN NEGATIVE; URINE PHENCYCLIDINE SCREEN NEGATIVE
[2019-06-17 21:09] LABS: URINE BENZODIAZEPINES SCREEN UNCONFIRMED POSITIVE
[2019-06-17 21:23] LABS: ARTERIAL BLOOD BASE EXCESS -6.5 mmol/L; ARTERIAL BLOOD H2CO3 1.85 mmol/L (1.05-1.35); ARTERIAL BLOOD HCO3 22.7 mmol/L (20-24); ARTERIAL BLOOD O2 SATURATION 87.3 % (94-98); ARTERIAL BLOOD PCO2 61.5 mmHg (35-45); ARTERIAL BLOOD PO2 65.5 mmHg (80-100); ARTERIAL BLOOD TOTAL CO2 24.6 mmol/L (21-25)
[2019-06-17 21:25] LABS: ARTERIAL BLOOD FIO2 75%; ARTERIAL BLOOD PH 7.19 (7.35-7.45)
[2019-06-17] MEDS ORDERED: SODIUM BICARBONATE 8.4% INJ 50 MEQ/50 ML DISP.SYRIN IV ONE (21:36)
--- NOTE | 2019-06-18 00:08 | ER Document Report ---
Entered by RADHA LINDO SCRIBE [birth year]191940 Acting as scribe for:SHAZIA BRITTON MD ED General - General Chief Complaint: Overdose Stated Complaint: OVERDOSE Information source: Friend, Law Enforcement, Emergency Med Personnel Notes: This 24-year-old female presents to the emergency department via EMS with a possible overdose. Patient was at home when her friends called EMS for a possible overdose. Friends reported that patient had heavy use of methamphetamine yesterday and had some use today of methamphetamine. Law enforcement arrived on scene first and administered 2 mg Narcan. Friends were unable to give a possible down time prior to law enforcement arrival. Law enforcement began CPR and was performing CPR for about 5 minutes prior to EMS arrival. On EMS arrival patient had weak radial pulses, looked cyanotic, pupils were dilated and were unresponsive. EMS stopped CPR due to a pulse and admi nistered 2 mg Narcan. Patient was reportedly still unresponsive but showing signs of improvement so they administered another 2 mg of Narcan. EMS reported that patient started excessively vomiting a "murky brown" substance. Patient was taken to the EMS truck where they performed RSI. EMS reports that the patient was consistently hypotensive. EMS reports that patient is a polypharmacy patient who uses cocaine and methamphetamine. Patient was found on scene with drug paraphernalia. TRAVEL OUTSIDE OF THE [place] IN LAST 30 DAYS: No - Related Data Allergies/Adverse Reactions: No Known Allergies Allergy (Unverified 02/08/19 13:52) Past Medical History - General Cannot obtain history due to: Intubated - Social History Smoking Status: Unknown if Ever Smoked Drug Abuse: Cocaine, Methamphetamine Family History: Reviewed & Not Pertinent - Past Medical History Cardiac Medical History: Reports: Hx Hypertension Pulmonary Medical History: Reports: Hx Bronchitis Neurological Medical History: Reports: Hx Seizures GI Medical History: Reports: Hx Hepatitis - C Psychiatric Medical History: Reports: Hx Depression Infectious Medical History: Reports: Hx Hepatitis - C Past Surgical History: Reports: Hx Cholecystectomy - Immunizations Immunizations up to date: Yes Review of Systems - Review of Systems -: Yes ROS unobtainable due to patient's medical condition Physical Exam - Vital signs Vitals: Temp Resp Pulse Ox 94.3 F L 14 99 06/17/19 19:32 06/17/19 19:32 06/17/19 19:32 - Notes Notes: Physical Exam: General:Unresponsive to noxious stimuli. Patient is intubated and sedated. Vital signs stable. HEENT: Normocephalic. Atraumatic. Pupils were 4mm in diameter and nonreactive to light positioned at midline. Oropharynx clear. Neck: Supple. Non-tender. Respiratory: Severe respiratory distress. Clear and equal breath sounds bilaterally. Cardiovascular: Regular rate and rhythm. Abdominal: Normal Inspection. Non-tender. No distension. Normal Bowel Sounds. Back: No gross abnormalities. Extremities: Flaccid Upper extremities: Normal inspection. Normal ROM. Lower extremities: Normal inspection. No edema. Normal ROM. Skin: Warm. Dry. Normal color. Course - Re-evaluation Re-evalutation: 06/17/19 23:58 Patient remained sedated intubated and flaccid during the time while in the emergency department. Hemodynamically stable. 06/18/19 00:05 Case discussed with midlevel Ronn Bojorquez, who is assisting Dr. Melissa bhat. She has agreed to admit patient to the ICU for further management and hospitalization. - Vital Signs Vital signs: Temp Pulse Resp BP Pulse Ox 99.5 F 116 H 19 120/73 100 06/17/19 23:54 06/17/19 22:55 06/17/19 22:55 06/17/19 22:55 06/17/19 22:55 - Laboratory Result Diagrams: 06/17/19 19:53 06/17/19 19:53 Laboratory results interpreted by me: 06/17/19 06/17/19 06/17/19 19:40 19:53 19:53 WBC 18.9 H Lymph % (Auto) 9.8 L Williams % (Auto) 1.9 L Absolute Neuts (auto) 16.6 H Seg Neutrophils % 87.4 H Carbonic Acid ABG pH ABG pCO2 ABG pO2 ABG O2 Saturation Potassium 3.2 L Glucose 313 H POC Glucose 350 H Lactic Acid Calcium 8.0 L AST 67 H ALT 36 H Total Protein 6.0 L Lipase 327.5 H Urine Protein Urine Glucose (UA) Acetaminophen < 10 L 06/17/19 06/17/19 06/17/19 19:53 19:53 20:25 WBC Lymph % (Auto) Williams % (Auto) Absolute Neuts (auto) Seg Neutrophils % Carbonic Acid 1.85 H ABG pH 7.19 L* ABG pCO2 61.5 H ABG pO2 65.5 L ABG O2 Saturation 87.3 L Potassium Glucose POC Glucose Lactic Acid 2.7 H Calcium AST ALT Total Protein Lipase Urine Protein 100 H Urine Glucose (UA) >=500 H Acetaminophen Laboratory results shows an elevated white count of 18.9, lactic acid of 2.7 increased glucose of 300, and a metabolic acidosis on arterial blood gas. Urine drug screen is positive for opiates and benzodiazepines. - Diagnostic Test Radiology reviewed: Image reviewed, Reports reviewed Radiology results interpreted by me: 06/18/19 00:01 CT scan of head showed no acute process. 06/18/19 00:02 Chest x-ray shows ET tube in place only 9 mm above the stephany. Questionable infiltrate or atelectasis in the right middle lobe. And the NG tube was below the hemidiaphragms. Discussed this chest x-ray finding with the radiologist which we had seen prior to the phone call he may and we had already pulled the ET tube back 2.5 cm. - EKG Interpretation by Me Additional EKG results interpreted by me: 06/17/19 22:31 Twelve-lead EKG shows sinus tachycardia rate of 122 consider anterior septal infarct borderline T wave abnormalities. Critical Care Note - Critical Care Note Total time excluding time spent on procedures (mins): 45 - Management of fluid administration hydration, hemodynamic cardiovascular management, infection management, ventilator management. Discharge - Discharge Clinical Impression: Drug overdose, Cardiopulmonary arrest Condition: Critical Disposition: ADMITTED INPATIENT Admitting Provider: Melissa ([facility]) Unit Admitted: ICU I personally performed the services described in the documentation, reviewed and edited the documentation which was dictated to the scribe in my presence, and it accurately records my words and actions.
--- NOTE | 2019-06-18 00:29 | CRITICAL CARE ADMISSION REPORT ---
HPI Date:: 06/17/19 Time:: 22:45 Reason for ICU Reason:: Drug Overdose HPI: 24 year old female with known polysubstance abuse and previous suicide attempt presented to the ED by EMS for overdose that occurred at the patient's home this evening. Her friends called EMS after she used meth and cocaine and became unresponsive, unknown downtime. [place] Police were first on the scene and administered Narcan 2mg IN and stared CPR for approximately 5 mins prior to EMS arriving. EMS reported administering a repeat dose of Narcan 2 mg IN and discontinued CPR when a radial pulse was palpated. Multiple attempts were made to establish a peripheral IV to the extremities without success. 18g cath was then placed to the pt's rt EJ and a 3rd dose of Narcan 2mg IV was given when pt began to vomit "profusely". Pt was intubated on scene. 7.0 ETT was placed and secured 23 cm at the teeth. 14 Fr NG tube was placed in the pt's left nare. In the ED EKG was obtained which showed sinus tachycardia core temp of 94.4 F. placed on fanta hugger for warming measures. Vent setting initially were SIMV volume control, rate 12,TV 500, FIO2 60% Pressure support 10 and PEEP of 5. ABG showed a Ph 7.19 OsQK052.5 PaO2 65.5 and a HCO3 22.7, I increased her rate on the vent to 16 and admited to the ICU for further management. - Diagnosis/Plan (1) Drug overdose Qualifiers: Encounter type: initial encounter Injury intent: accidental or unintentional Qualified Code(s): T50.901A - Poisoning by unspecified drugs, medicaments and biological substances, accidental (unintentional), initial encounter Is this a current diagnosis for this admission?: Yes Plan: Keep intubated until awake and able to breathe on own Will discuss possible rehab with patient when awake (2) Acute respiratory failure with hypoxia and hypercapnia Is this a current diagnosis for this admission?: Yes Plan: Secondary to overdose with aspiration Maintain mechanical ventilation Monitor ABG CXR in AM Past Medical History Cardiac Medical History: Reports: Hypertension Denies: Coronary Artery Disease, Myocardial Infarction Pulmonary Medical History: Reports: Bronchitis Denies: Asthma, Chronic Obstructive Pulmonary Disease (COPD), Pneumonia Neurological Medical History: Reports: Seizures GI Medical History: Reports: Hepatitis - C Musculoskeltal Medical History: Denies: Arthritis Psychiatric Medical History: Reports: Depression Hematology: Denies: Anemia Infectious Medical History: Reports: Hepatitis C Past Surgical History Past Surgical History: Reports: Cholecystectomy Social/Family History - Social History Smoking Status: Current Every Day Smoker Frequency of Alcohol Use: Heavy Hx Recreational Drug Use: Yes Drugs: Cocaine, Other - Medication/Allergies Home Medications: Escitalopram Oxalate [Lexapro] 10 mg PO DAILY 04/23/19 Lamotrigine 200 mg PO DAILY 04/23/19 Allergies/Adverse Reactions: No Known Allergies Allergy (Unverified 02/08/19 13:52) Physical Exam Vital Signs: Temp Pulse Resp BP Pulse Ox 99.5 F 116 H 19 120/73 100 06/17/19 23:54 06/17/19 22:55 06/17/19 22:55 06/17/19 22:55 06/17/19 22:55 Intake & Output 06/16/19 06/17/19 06/18/19 06:59 06:59 06:59 Intake Total 1053 Output Total 300 Balance 753 Weight 73.2 kg Weight/Height Weight 73.2 kg Height 5 ft 8 in General appearance: PRESENT: mild distress Head exam: PRESENT: atraumatic, normocephalic Eye exam: PRESENT: PERRLA Mouth exam: PRESENT: moist, neck supple Respiratory exam: PRESENT: clear to auscultation adali Cardiovascular exam: PRESENT: +S1, +S2 Pulses: PRESENT: normal dorsalis pedis pul GI/Abdominal exam: PRESENT: normal bowel sounds Neurological exam: PRESENT: other - sedated Skin exam: PRESENT: other - Multiple scars on both arms secondary to "cutting" Tubes/Lines: PRESENT: Endotracheal Tube, Nasogastic Tube Laboratory/Radiographs Laboratory Results: 06/17/19 19:53 06/17/19 19:53 06/17/19 06/17/19 06/17/19 19:53 19:53 19:53 WBC 18.9 H RBC 4.04 Hgb 13.1 Hct 38.5 MCV 95 MCH 32.5 MCHC 34.2 RDW 12.6 Plt Count 193 Seg Neutrophils % 87.4 H Carbonic Acid HCO3/H2CO3 Ratio ABG pH ABG pCO2 ABG pO2 ABG HCO3 ABG O2 Saturation ABG Base Excess FiO2 Sodium 138.2 Potassium 3.2 L Chloride 104 Carbon Dioxide 23 Anion Gap 11 BUN 13 Creatinine 0.69 Est GFR ( Amer) > 60 Glucose 313 H Lactic Acid 2.7 H Calcium 8.0 L Total Bilirubin 0.4 AST 67 H Alkaline Phosphatase 69 Total Protein 6.0 L Albumin 3.6 Lipase 327.5 H Serum HCG, Qual Urine Color Urine Appearance Urine pH Ur Specific Malone Urine Protein Urine Glucose (UA) Urine Ketones Urine Blood Urine Nitrite Ur Leukocyte Esterase Urine WBC (Auto) Urine RBC (Auto) 06/17/19 06/17/19 06/17/19 19:53 19:53 20:25 WBC RBC Hgb Hct MCV MCH MCHC RDW Plt Count Seg Neutrophils % Carbonic Acid 1.85 H HCO3/H2CO3 Ratio 12:1 ABG pH 7.19 L* ABG pCO2 61.5 H ABG pO2 65.5 L ABG HCO3 22.7 ABG O2 Saturation 87.3 L ABG Base Excess -6.5 FiO2 75% Sodium Potassium Chloride Carbon Dioxide Anion Gap BUN Creatinine Est GFR ( Amer) Glucose Lactic Acid Calcium Total Bilirubin AST Alkaline Phosphatase Total Protein Albumin Lipase Serum HCG, Qual NEGATIVE Urine Color YELLOW Urine Appearance SLIGHTLY-CLOUDY Urine pH 6.0 Ur Specific Malone 1.016 Urine Protein 100 H Urine Glucose (UA) >=500 H Urine Ketones NEGATIVE Urine Blood NEGATIVE Urine Nitrite NEGATIVE Ur Leukocyte Esterase NEGATIVE Urine WBC (Auto) 3 Urine RBC (Auto) 2 06/17/19 19:53 Troponin I < 0.012 Impressions: Chest X-Ray 06/17/19 19:43 IMPRESSION: The tip of the ET tube is only 9 mm above the stephany. The tube should be pulled up approximately 4 cm. Possible atelectasis or infiltrate at the medial right lung base. copyright 2010 [employer]- All Rights Reserved Head CT 06/17/19 19:47 IMPRESSION: No acute intracranial abnormality. TECHNICAL DOCUMENTATION: Quality ID # 436: Final reports with documentation of one or more dose reduction techniques (e.g., Automated exposure control, adjustment of the mA and/or kV according to patient size, use of iterative reconstruction technique) copyright 2011 [employer]- All Rights Reserved Critical Time Critical Time (minutes): 45 -: The care of a critically ill patient is dynamic. This note represents a static moment in the admission process. Orders and treatments may be given simultaneously and urgently, and time is not product support representative of the treatment process. This patient requires Critical Care secondary to life threatening organ or limb dysfunction. Without Critical Care services, the patient is at risk for increased mortality and morbidity.
[2019-06-18 04:05] LABS: HEMATOCRIT 38.4 % (36.0-47.0); HEMOGLOBIN 13.3 g/dL (12.0-15.5); MEAN CORPUSCULAR HEMOGLOBIN 31.9 pg (27.0-33.4); MEAN CORPUSCULAR HGB CONC 34.6 g/dL (32.0-36.0); MEAN CORPUSCULAR VOLUME 92 fl (80-97); PLATELET COUNT 168 10^3/uL (150-450); RED BLOOD COUNT 4.16 10^6/uL (3.72-5.28); RED CELL DISTRIBUTION WIDTH 12.4 % (11.5-14.0); WHITE BLOOD COUNT 22.5 10^3/uL (4.0-10.5)
[2019-06-18 04:15] LABS: INTERNATIONAL RATION (INR) 1.05; PROTHROMBIN TIME 13.7 SEC (11.4-15.4)
[2019-06-18 04:26] LABS: ABSOLUTE LYMPHOCYTES# (MANUAL) 0.5 10^3/uL (0.5-4.7); ABSOLUTE MONOCYTES # (MANUAL) 0.5 10^3/uL (0.1-1.4); ALBUMIN 3.7 g/dL (3.5-5.0); ALKALINE PHOSPHATASE 66 U/L (38-126); ASPARTATE AMINO TRANSFERASE 49 U/L (14-36); BAND NEUTROPHILS % (MANUAL) 6 % (3-5); BASOPHILS % (MANUAL) 0 % (0-2); BILIRUBIN,TOTAL 0.8 mg/dL (0.2-1.3); BLOOD UREA NITROGEN 14 mg/dL (7-20); CALCIUM 8.4 mg/dL (8.4-10.2); CARBON DIOXIDE 28 mmol/L (22-30); CHLORIDE 105 mmol/L (98-107); EOSINOPHILS % (MANUAL) 0 % (0-6); GLUCOSE 112 mg/dL (75-110); LYMPHOCYTES % (MANUAL) 2 % (13-45); MONOCYTES % (MANUAL) 2 % (3-13); PLATELET COMMENT ADEQUATE; RBC MORPHOLOGY COMMENT NORMO-CYTIC/CHROMIC; SEGMENTED NEUTROPHILS % (MAN) 90 % (42-78); TOTAL CELLS COUNTED 100
[2019-06-18 04:27] VITALS: BP 117/71
[2019-06-18 04:42] LABS: ANION GAP 5 (5-19); POTASSIUM 4.4 mmol/L (3.6-5.0)
[2019-06-18] MEDS ORDERED: FAMOTIDINE INJ/PF 20 MG/2 ML SDV IV SCH (10:00)
--- NOTE | 2019-06-18 10:32 | EKG REPORT ---
SEVERITY:- ABNORMAL ECG - SINUS TACHYCARDIA ABNORMAL Q SUGGESTS ANTERIOR INFARCT BORDERLINE T ABNORMALITIES, ANT-LAT LEADS : Confirmed by: Vic Lawson 18-Jun-2019 10:31:54
== END 2019-06-18 05:40 | disposition left against medical advice (07) | DRG 917 ==
LOC: ER 19:31 → EH 22:33 → ICU 22:43
PROVIDERS: ADMIT Anesthesiology; ATTEND Anesthesiology
PROC: 5A1935Z Respiratory Ventilation, Less than 24 Consecutive Hours (ICD-10-PCS; principal; 2019-06-17)
DX: T43.621A Poisoning by amphetamines, accidental (unintentional), initial encounter (principal); J96.02 Acute respiratory failure with hypercapnia; J96.01 Acute respiratory failure with hypoxia; T40.5X1A Poisoning by cocaine, accidental (unintentional), initial encounter; I10 Essential (primary) hypertension; Y92.018 Other place in single-family (private) house as the place of occurrence of the external cause
CPT/HCPCS: 36415; 51702; 70450; 71045; 80053; 80307; 81001; 82803; 82962; 83605; 83690; 84484; 84703; 85025; 85610; 85730; 87040; 87077; 87086; 87186; 93005; 93010; 94002; 94003; 96361; 96365; 99291; J0692; J2704; J3490; J7030